=== PATIENT | male | born 2000 | race Caucasian/White ===

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

== ENCOUNTER 2023-02-20 17:39 | Emergency (ER) | payer OTHER | END 2023-02-20 18:37 | disposition home or self-care (01) | LOC: CSHERS 17:39 | DX: K64.9 Unspecified hemorrhoids (principal) | CPT/HCPCS: 99282 ==

== ENCOUNTER 2023-02-22 19:07 | Emergency (ER) | payer OTHER ==
[2023-02-22] MEDS ORDERED: Lorazepam 2 MG/ML VIAL ONE (19:27)
== END 2023-02-22 21:28 | disposition home or self-care (01) ==
LOC: CSHERS 19:07
DX: F12.90 Cannabis use, unspecified, uncomplicated (principal)
CPT/HCPCS: 96374; J2060